=== PATIENT | male | born 1945 | race Caucasian/White ===

== ENCOUNTER 2020-06-06 05:28 | Inpatient (IN) ==
[2020-06-06] MEDS ORDERED: LORazepam 1 MG TAB SL STA (05:42)
[2020-06-06] MEDS ORDERED: SODIUM CHLORIDE 0.9% 500 ML IV ONE (05:43)
[2020-06-06] MEDS ORDERED: LORazepam 2 MG/ML VIAL (IM USE) ONE (05:46)
[2020-06-06] MEDS ORDERED: LORazepam 2 MG/ML VIAL (IM USE) IM STA (05:46)
--- NOTE | 2020-06-06 05:56 | Emergency Department Note ---
History of Present Illness General Chief complaint: Altered Mental Status Stated complaint: ALTERED MENTAL STATUS Time Seen by Provider: 06/06/20 05:33 Source: patient, family (daugther), EMS, RN notes reviewed and old records reviewed Mode of arrival: EMS Limitations: altered mental status History of Present Illness Provider complaint: AMS Onset (ago): hour(s) 1 Location: head Severity: similar to prior episodes Associated symptoms: + confusion Treatments prior to arrival: none This is a 74-year-old male who is currently at [facility]. The patient was recently at [facility] and had an MRI that was concerning for brain tumor. In addition the patient also had a shunt placed approximately 1 year ago by a [place] surgeon. The patient has a follow-up appointment with this doctor in 1 week. The patient approximately 2 hours ago this evening became suddenly confused. He will answer some questions however is non-cooperative. I placed a telephone call to this patient's daughter who reports that the patient has episodes of similar nature from time to time. Nobody has been able to figure out why the patient is having these episodes. He does have a follow-up for the shunt in 1 week. Home Medications Home Medications Medication Instructions Recorded Confirmed Type acetaminophen [Tylenol Extra 1,000 mg PO Q8H PRN 06/06/20 06/06/20 History Strength] aspirin [Aspirin Low Dose] 81 mg PO DAILY 06/06/20 06/06/20 History atorvastatin 40 mg PO DAILY 06/06/20 06/06/20 History bisacodyl 10 mg IL DAILY PRN 06/06/20 06/06/20 History clonidine HCl 0.1 mg PO BID 06/06/20 06/06/20 History docusate sodium 100 mg PO BID 06/06/20 06/06/20 History duloxetine 60 mg PO DAILY 06/06/20 06/06/20 History enoxaparin 40 mg SUBCUT DAILY 06/06/20 06/06/20 History finasteride 5 mg PO DAILY 06/06/20 06/06/20 History lidocaine [Lidoderm] 1 patch TOPICAL DAILY 06/06/20 06/06/20 History lisinopril 40 mg PO DAILY 06/06/20 06/06/20 History magnesium hydroxide 30 ml PO DAILY PRN 06/06/20 06/06/20 History metformin 1,000 mg PO BID 06/06/20 06/06/20 History metoprolol succinate [Toprol XL] 100 mg PO DAILY 06/06/20 06/06/20 History pantoprazole [Protonix] 40 mg PO DAILY 06/06/20 06/06/20 History polyethylene glycol 3350 [Miralax] 17 g PO DAILY PRN 06/06/20 06/06/20 History sennosides-docusate sodium 1 tab-cap PO DAILY PRN 06/06/20 06/06/20 History [Senokot-S] sitagliptin [Januvia] 100 mg PO DAILY 06/06/20 06/06/20 History sodium phosphates [Fleet Enema] 118 ml IL DAILY PRN 06/06/20 06/06/20 History Allergies Allergy/AdvReac Type Severity Reaction Status Date / Time No Known Allergies Allergy Unverified 06/06/20 05:59 Past Med/Surg History Medical History Brain lesion Cognitive impairment Diabetes mellitus GERD (gastroesophageal reflux disease) History of cerebellar stroke History of DVT (deep vein thrombosis) HTN (hypertension), benign Hyperlipidemia Lumbar spinal stenosis NPH (normal pressure hydrocephalus) Surgical History History of brain shunt Hx of decompressive lumbar laminectomy Family History Other Family history non-contributory Social History Smoking Status: Former smoker Tobacco Type: Cigarettes Age Quit Using Tobacco: 51; Hx Alcohol Use: No Hx Substance Use: No Preferred Language: [place] Director Of Financial Aid Required: No Beliefs That Will Affect Care: None Current Living Situation: Rehab Other Information That Helps Us Care for You: No Feels Safe at Home: Yes Safety Concerns: Feels Safe At This Time Review of Systems A total of 10 systems reviewed and were otherwise negative Physical Exam Vital Signs Vital Signs - 24 hr 06/06/20 05:49 06/06/20 06:43 06/06/20 07:30 Temperature 36.4 C L Temperature Source Oral Pulse Rate 65 70 Pulse Rate [Apical] 71 Pulse Rate from SpO2 Sensor 71 Respiratory Rate 19 18 12 Blood Pressure 137/73 184/90 H Blood Pressure [Right Arm] 169/100 H Blood Pressure Mean 94 130 Blood Pressure Mean [Right Arm] 123 Pulse Oximetry 95 94 95 Oxygen Delivery Method Room Air Room Air Room Air Sepsis Recent Fever Within 48 Hours No Sepsis New/Unexplained Change in Mental Status No Sepsis Action Taken by Nursing No Action Required 06/06/20 08:31 Temperature Temperature Source Pulse Rate 78 Pulse Rate [Apical] Pulse Rate from SpO2 Sensor 80 Respiratory Rate 18 Blood Pressure 168/98 H Blood Pressure [Right Arm] Blood Pressure Mean 124 Blood Pressure Mean [Right Arm] Pulse Oximetry 93 Oxygen Delivery Method Room Air Sepsis Recent Fever Within 48 Hours Sepsis New/Unexplained Change in Mental Status Sepsis Action Taken by Nursing VITAL SIGNS - Vital signs and nursing notes were reviewed. GENERAL - 74-year-old male appearing grossly confused but who is in no acute distress. Does not answer questions but is moving all 4 extremities SKIN - Without rashes. HEAD - NC/AT. EYES - PERRL with EOMI bilaterally. Sclera anicteric. Palpebral conjunctiva pink and moist with no injection noted. EARS - No deformities of external structures noted on gross examination bilaterally. No pain elicited with palpation of the tragus bilaterally. External auditory canals without discharge or otorrhea. Tympanic membranes pearly haywood without retraction or bulging. No fluid or purulent material visualized behind the TM. Handle of malleus, umbo, cone of light, pars tensa/flaccid all easily visualized. NOSE - Midline and without cyanosis. No epistaxis or purulent drainage noted. Septum midline without deviation or septal hematoma noted. MOUTH/OROPHARYNX - Without perioral cyanosis. Buccal mucosa pink and moist and without leukoplakia. Tongue midline with equal elevation of palate bilaterally. No tonsillar hypertrophy, erythema, or exudates noted. dentition noted. NECK - Neck with FROM. Supple to palpation. lymphadenopathy noted. No nuchal rigidity. LUNGS - Chest wall symmetric without accessory muscle use, intercostals retractions, or central cyanosis. Normal vesicular breath sounds CTA B/L. No wheezes, rales, or rhonchi appreciated. CARDIAC - RRR with S1/S2. No murmur, rubs, or gallops appreciated. ABDOMEN - Abdominal contour without pulsations or visible masses. BS normoactive all four quadrants. No tenderness, palpable masses, hepatosplenomegaly, or ascites noted. EXTREMITIES - No clubbing or peripheral cyanosis. No pretibial edema present. +3/5 radial, posterior tibial, and dorsalis pedis pulses palpated throughout. +5/5 strength noted in UE/LE bilaterally. NEUROLOGIC - Cranial nerves II through XII grossly intact. Sensory intact to light touch throughout. Patellar reflexes +2/4. PSYCH - A&Ox3 and cooperates fully with examiner. Pt is very pleasant and interacts well with examiner. Course Administered Medications Aspirin (Aspirin 81 Mg Ectab) 81 mg PO DAILY ISAAC Stop: 07/06/20 09:38 Last Admin: 06/06/20 16:37 Dose: Not Given Documented by: [id number] Atorvastatin Calcium (Atorvastatin 40 Mg Tab) 40 mg PO DAILY ISAAC Stop: 07/06/20 09:38 Last Admin: 06/06/20 16:37 Dose: Not Given Documented by: [id number] Clonidine HCl (Clonidine Hcl 0.1 Mg Tab) 0.1 mg PO BID ISAAC Stop: 07/06/20 09:38 Last Admin: 06/06/20 20:15 Dose: 0.1 mg Documented by: [id number] Admin: 06/06/20 16:37 Dose: Not Given Documented by: [id number] Docusate Sodium (Docusate Sodium 100 Mg Cap) 100 mg PO BID ISAAC Stop: 07/06/20 09:38 Last Admin: 06/06/20 20:34 Dose: Not Given Documented by: [id number] Admin: 06/06/20 16:36 Dose: Not Given Documented by: [id number] Duloxetine HCl (Duloxetine Hcl 60 Mg Cap) 60 mg PO DAILY ISAAC Stop: 07/06/20 09:38 Last Admin: 06/06/20 16:36 Dose: Not Given Documented by: [id number] Finasteride (Finasteride 5 Mg Tab) 5 mg PO DAILY ISAAC Stop: 07/06/20 09:38 Last Admin: 06/06/20 16:37 Dose: Not Given Documented by: [id number] Potassium Chloride/Sodium Chloride (Normal Saline W/20 Meq Kcl) 20 meq in 1,000 mls @ 75 mls/hr IV .[id number] ISAAC Stop: 07/06/20 08:44 Last Admin: 06/06/20 22:52 Dose: 75 mls/hr Documented by: [id number] Infusion: 06/06/20 22:52 Dose: 75 mls/hr Documented by: [id number] Admin: 06/06/20 10:19 Dose: 75 mls/hr Documented by: [id number] Lorazepam (Ativan) 1 mg in 2 mls @ 2 mls/min IV Q1H PRN PRN Reason: seizure or agitation Stop: 07/06/20 08:46 Last Admin: 06/06/20 14:00 Dose: 2 mls/min Documented by: [id number] Insulin Aspart (Insulin Aspart 100 Units/Ml 3 Ml Pen) 0 units SC ACHS COUNTS INCLUDE 234 BEDS AT THE [facility] Stop: 07/06/20 11:29 Last Admin: 06/06/20 21:13 Dose: Not Given Documented by: [id number] Cosigned by: [id number] Admin: 06/06/20 18:18 Dose: Not Given Documented by: [id number] Cosigned by: [id number] Admin: 06/06/20 12:00 Dose: Not Given Documented by: [id number] Cosigned by: [id number] Lisinopril (Lisinopril 40 Mg Tab) 40 mg PO DAILY COUNTS INCLUDE 234 BEDS AT THE [facility] Stop: 07/06/20 09:38 Last Admin: 06/06/20 16:37 Dose: Not Given Documented by: [id number] Metoprolol Succinate (Metoprolol Succ 50mg Ext Rel Tab) 100 mg PO DAILY COUNTS INCLUDE 234 BEDS AT THE [facility] Stop: 07/06/20 09:38 Last Admin: 06/06/20 16:37 Dose: Not Given Documented by: [id number] Sitagliptin Phosphate (Sitagliptin Phosphate 100 Mg Tab) 100 mg PO DAILY COUNTS INCLUDE 234 BEDS AT THE [facility] Stop: 07/06/20 09:38 Last Admin: 06/06/20 16:37 Dose: Not Given Documented by: [id number] Discontinued Medications Ciprofloxacin (Ciprofloxacin 500 Mg Tab) 500 mg PO NOW STA Stop: 06/06/20 07:08 Last Admin: 06/06/20 07:25 Dose: Not Given Documented by: [id number] Haloperidol Lactate (Haloperidol Lactate 5 Mg/Ml 1 Ml Vial) Confirm Administered Dose 5 mg .ROUTE .ST-MED ONE Stop: 06/06/20 06:38 Last Admin: 06/06/20 06:40 Dose: 5 mg Documented by: [id number] Haloperidol Lactate (Haloperidol Lactate 5 Mg/Ml 1 Ml Vial) 5 mg IM NOW STA Stop: 06/06/20 06:47 Last Admin: 06/06/20 06:47 Dose: Not Given Documented by: [id number] Sodium Chloride (Nss) 500 mls @ 999 mls/hr IV .Q31M ONE Stop: 06/06/20 06:13 Last Infusion: 06/06/20 07:00 Dose: 0 mls/hr Documented by: [id number] Admin: 06/06/20 06:29 Dose: 999 mls/hr Documented by: [id number] Ceftriaxone Sodium (Rocephin) 2,000 mg in 70 mls @ 140 mls/hr IV NOW STA Stop: 06/06/20 07:36 Last Infusion: 06/06/20 07:54 Dose: 0 mls/hr Documented by: [id number] Admin: 06/06/20 07:24 Dose: 140 mls/hr Documented by: [id number] Ciprofloxacin (Cipro / D5w) 400 mg in 200 mls @ 100 mls/hr IV NOW STA; Protocol Stop: 06/06/20 09:10 Last Infusion: 06/06/20 10:00 Dose: 0 mls/hr Documented by: [id number] Admin: 06/06/20 07:54 Dose: 100 mls/hr Documented by: [id number] Lorazepam (Lorazepam 1 Mg Tab) 1 mg SL NOW STA Stop: 06/06/20 05:43 Last Admin: 06/06/20 06:17 Dose: Not Given Documented by: [id number] Lorazepam (Lorazepam 2 Mg/Ml Vial (Im Use)) 1 mg IM NOW STA Stop: 06/06/20 05:47 Last Admin: 06/06/20 05:51 Dose: Not Given Documented by: [id number] Lorazepam (Lorazepam 2 Mg/Ml Vial (Im Use)) Confirm Administered Dose 2 mg .ROUTE .STK-MED ONE Stop: 06/06/20 05:47 Last Admin: 06/06/20 05:50 Dose: 1 mg Documented by: [id number] Metoprolol Tartrate (Metoprolol Tartrate 1 Mg/Ml Vial) 5 mg IV NOW STA Stop: 06/06/20 09:44 Last Admin: 06/06/20 10:21 Dose: 5 mg Documented by: [id number] Critical Care Time I have personally spent greater than 30 minutes of critical care time in the direct management of this patient. This includes bedside care, interpretation of diagnostic studies, and testing, discussion with consultants, patient, and family members, and other required patient management activities. This 30 minutes is in excess of all separately billable procedures. Medical Decision Making Differential Diagnosis Infection, dehydration, metabolic abnormality, hypo/hyperglycemia, electrolyte disturbance, anemia, hypoxia, cardiac sources, intracerebral event, toxicologic, neurologic, as well as other pathologies. Medical Records Attestation: I reviewed the patient's medical records. Home Medications Current Medication List: was personally reviewed by me Laboratory Data Attestation: I reviewed the patient's lab results. Result diagrams: 06/06/20 05:55 06/06/20 05:55 Lab Results 06/06/20 06/06/20 06/06/20 Range/Units 05:55 05:55 05:55 WBC 9.17 (4.8-10.8) K/uL RBC 3.94 L (4.7-6.1) M/uL Hgb 12.9 L (14.0-18.0) g/dL Hct 36.8 L (42-52) % MCV 93.4 (80-100) fL MCH 32.7 (25-34) pg MCHC 35.1 (32-36) g/dL RDW Std Deviation 43.3 (36.4-46.3) fL RDW Coeff of Preethi 12.6 (11.5-14.5) % Plt Count 221 (130-400) K/uL MPV 10.4 (7.4-10.4) fL Immature Gran % (Auto) 0.3 % Neut % (Auto) 54.6 % Lymph % (Auto) 36.0 % Mobile % (Auto) 6.4 % Eos % (Auto) 2.5 % Baso % (Auto) 0.2 % Neut # (Auto) 5.00 (1.4-6.5) K/uL Lymph # (Auto) 3.30 (1.2-3.4) K/uL Mobile # (Auto) 0.59 (0.11-0.59) K/uL Eos # (Auto) 0.23 (0-0.5) K/uL Baso # (Auto) 0.02 (0-0.2) K/uL Immature Gran # (Auto) 0.03 H (0.00-0.02) K/uL Sodium 140 (136-145) mmol/L Potassium 3.8 (3.5-5.1) mmol/L Chloride 106 (98-107) mmol/L Carbon Dioxide 25 (21-32) mmol/L Anion Gap 9.0 (3-11) BUN 26 H (7-18) mg/dl Creatinine 1.04 (0.6-1.4) mg/dl Est Cr Clr Drug Dosing 63.3 ml/min Est GFR ( Amer) 82.2 Est GFR (Non-Af Amer) 70.9 BUN/Creatinine Ratio 24.9 H (10-20) Glucose 111 H (70-99) mg/dl Calcium 8.7 (8.5-10.1) mg/dl Total Bilirubin 0.5 (0.2-1) mg/dl AST 21 (15-37) U/L ALT 44 (12-78) U/L Alkaline Phosphatase 70 (45-117) U/L Troponin I < 0.015 (0-0.045) ng/ml Total Protein 7.0 (6.4-8.2) gm/dl Albumin 3.6 (3.4-5.0) gm/dl Globulin 3.4 (2.5-4.0) gm/dl Albumin/Globulin Ratio 1.1 (0.9-2) TSH 1.310 (0.300-4.500) uIu/ml Urine Color Urine Appearance (Clear) Urine pH (4.5-7.5) Ur Specific [place] (1.000-1.030) Urine Protein (Negative) Urine Glucose (UA) (Negative) Urine Ketones (Negative) Urine Blood (Negative) Urine Nitrite (Negative) Urine Bilirubin (Negative) Urine Urobilinogen (Negative) Ur Leukocyte Esterase (Negative) Urine WBC (Auto) (0-5) /hpf Urine RBC (Auto) (0-4) /hpf U Hyaline Cast (Auto) (0-5) /lpf U Epithel Cells (Auto) (0-5) /lpf Urine Bacteria (Auto) (Negative) Hepatitis C Ab Screen Neg (Neg) 06/06/20 Range/Units 06:05 WBC (4.8-10.8) K/uL RBC (4.7-6.1) M/uL Hgb (14.0-18.0) g/dL Hct (42-52) % MCV (80-100) fL MCH (25-34) pg MCHC (32-36) g/dL RDW Std Deviation (36.4-46.3) fL RDW Coeff of Preethi (11.5-14.5) % Plt Count (130-400) K/uL MPV (7.4-10.4) fL Immature Gran % (Auto) % Neut % (Auto) % Lymph % (Auto) % Mobile % (Auto) % Eos % (Auto) % Baso % (Auto) % Neut # (Auto) (1.4-6.5) K/uL Lymph # (Auto) (1.2-3.4) K/uL Mobile # (Auto) (0.11-0.59) K/uL Eos # (Auto) (0-0.5) K/uL Baso # (Auto) (0-0.2) K/uL Immature Gran # (Auto) (0.00-0.02) K/uL Sodium (136-145) mmol/L Potassium (3.5-5.1) mmol/L Chloride (98-107) mmol/L Carbon Dioxide (21-32) mmol/L Anion Gap (3-11) BUN (7-18) mg/dl Creatinine (0.6-1.4) mg/dl Est Cr Clr Drug Dosing ml/min Est GFR ( Amer) Est GFR (Non-Af Amer) BUN/Creatinine Ratio (10-20) Glucose (70-99) mg/dl Calcium (8.5-10.1) mg/dl Total Bilirubin (0.2-1) mg/dl AST (15-37) U/L ALT (12-78) U/L Alkaline Phosphatase (45-117) U/L Troponin I (0-0.045) ng/ml Total Protein (6.4-8.2) gm/dl Albumin (3.4-5.0) gm/dl Globulin (2.5-4.0) gm/dl Albumin/Globulin Ratio (0.9-2) TSH (0.300-4.500) uIu/ml Urine Color Yellow Urine Appearance Clear (Clear) Urine pH 6.5 (4.5-7.5) Ur Specific [place] 1.023 (1.000-1.030) Urine Protein Negative (Negative) Urine Glucose (UA) Negative (Negative) Urine Ketones Trace H (Negative) Urine Blood Negative (Negative) Urine Nitrite Negative (Negative) Urine Bilirubin Negative (Negative) Urine Urobilinogen Negative (Negative) Ur Leukocyte Esterase 2+ H (Negative) Urine WBC (Auto) 10-30 H (0-5) /hpf Urine RBC (Auto) 0-4 (0-4) /hpf U Hyaline Cast (Auto) 1-5 (0-5) /lpf U Epithel Cells (Auto) 0-5 (0-5) /lpf Urine Bacteria (Auto) 2+ H (Negative) Hepatitis C Ab Screen (Neg) Imaging Data Radiologist's Impression: [place], [place] [phone] CT Scan Report Patient: DUSTIN CAROAdmit Date: 06/06/20 MR#: [id number]: [address] Acct ID:[id number]: Date: 1945[facility] Zip: [place] [address] Age: 74Location: ED Sex: MRoom/Bed: Att Phy:Diagnosis: ALTERED MENTAL STATUS [facility] Fam Phy:Interpreting Phy: Sunny Alicia MD Admit Phy: Ordering Phy: John Kelley MD cc: ~ CT head/brain wo con CLINICAL HISTORY: Acute change in mental status. COMPARISON STUDY: No previous studies for comparison. TECHNIQUE: Axial CT of the brain is performed from the vertex to the skull base. IV contrast was not administered for this examination. A dose lowering technique was utilized adhering to the principles of ALARA. CT DOSE: 2560.15 mGy.cm FINDINGS: No intra or extra-axial mass lesions are visualized. There is no CT evidence of acute cortical infarction. There is no evidence of midline shift. There is no acute hemorrhage. No calvarial fractures are visualized. There is a right posterior parieto-occipital ventriculostomy catheter. The tip terminates within the body left lateral ventricle. There are patchy white matter hypodensities likely on a small vessel basis. There is no evidence of pathologic ventricular dilatation. There is no evidence of acute sinusitis IMPRESSION: No acute intracranial findings ACT 112: Negative or not required by law. Electronically signed by: Sunny Alicia M.D. 06/06/2020 7:02 AM Dictated: 08/27/20 0700 Transcribed: 06/06/206[address] [place], [place] [phone] XRay Report Patient: DUSTIN CAROAdmit Date: 06/06/20 MR#: [id number]: [address] Acct ID:[id number]: Date: 1945[facility] Zip: [place] [address] Age: 74Location: ED Sex: MRoom/Bed: Att Phy:Diagnosis: ALTERED MENTAL STATUS [facility] Date: 06/06/20 Fam Phy:Interpreting Phy: Sunny Alicia MD Admit Phy: Ordering Phy: John Kelley MD cc: ~ XR chest 1V portable CLINICAL HISTORY: weakness COMPARISON STUDY: No previous studies for comparison. FINDINGS: The heart is enlarged. There is mild prominence of mediastinum likely vascular. There is no failure. There is no focal pulmonary consolidation. There are no pleural effusions. A shunt catheter projects over the right hemithorax.[ IMPRESSION: No active disease in the chest. ACT 112: Negative or not required by law. Electronically signed by: Sunny Alicia M.D. 06/06/2020 7:48 AM Dictated: 06/06/20746 Transcribed: 06/06/20746 ECG Data Attestation: I personally reviewed and interpreted this ECG as follows: Indication: + altered mental status Rate (beats per minute): 65 Rhythm: + normal sinus ECG Intervals/blocks: + Normal QT-c (438) ECG Rosine: + Normal ECG ST segments: no ST depression and no ST elevation Comparison ECG Date: no prior available MDM Narrative Patient was seen and evaluated as above in room C9. Review was performed of nursing notes and vital signs. I did review pertinent previous visits and patient history. After obtaining a thorough history and physical examination the above work up was performed. While in the department, I personally reevaluated the patient several times and each time the patient was found to be resting comfortably. The patient was educated upon management, educated upon todays findings/results, educated upon importance of follow up from today's visit, educated upon symptoms in which to return, had questions answered prior to discharge, verbalized understanding, and was discharged home in good condition. This is a 74-year-old male who presents the emergency department over concerns about an altered mental status. Upon arrival to the emergency department the patient is non-cooperative. Due to the patient's size we will have to sedate him to obtain laboratory work as well as a CAT scan of the head. I did discuss this with the patient's daughter. The patient's daughter states that the patient becomes confused from time to time and they have not ever quite figured out why. She does want him sedated so that everything can be checked out. For this reason the patient was given Ativan x2. The patient was still rambunctious and was still trying to leave his bed therefore he was given an additional dose of Haldol IM. He was placed on the monitor car operator. He was sent for CAT scan of the head which does not show any acute process. He does not have an elevation his white blood cell count however his urinalysis does suggest infection. He was started on IV Rocephin as well as IV Cipro. I did discuss t he case with the hospitalist service who did agree to admit the patient. An order was placed for continuous cardiac monitoring. The monitor shows a rate of 87 with Normal Sinus rhythm. The patient was evaluated during the global COVID-19 pandemic, and that diagnosis was suspected/considered upon their initial presentation. Their evaluation, treatment and testing was consistent with current guidelines for patients who present with complaints or symptoms that may be related to COVID- 19. Impression & Plan UTI (urinary tract infection), Confusion, Meningioma, S/P PERSONAL LINES ACCOUNT EXECUTIVE shunt Discharge Plan Visit Data Chief Complaint: Altered Mental Status Stated Complaint: ALTERED MENTAL STATUS ED Provider: John Kelley Discharge Problem: UTI (urinary tract infection), Confusion, Meningioma, S/P PERSONAL LINES ACCOUNT EXECUTIVE shunt Patient Disposition: Admitted As Inpatient Discharge Instructions Interventions: ED Discharge Assessment Last Done: 06/06/20 09:11 Discharge Problem: UTI (urinary tract infection) Qualifiers: Urinary tract infection type: site unspecified Hematuria presence: without hematuria Qualified Code(s): N39.0 - Urinary tract infection, site not specified
[2020-06-06 06:17] LABS: Basophils # (auto) 0.02 K/uL (0-0.2); Basophils % (auto) 0.2 %; Eosinophils # (auto) 0.23 K/uL (0-0.5); Eosinophils % (auto) 2.5 %; Hematocrit (blood only) 36.8 % (42-52); Hemoglobin 12.9 g/dL (14.0-18.0); Immature Granulocytes # (auto) 0.03 K/uL (0.00-0.02); Immature Granulocytes % (auto) 0.3 %; Mean Corpuscular Hemoglobin 32.7 pg (25-34); Mean Corpuscular Hgb Conc 35.1 g/dL (32-36); Mean Corpuscular Volume 93.4 fL (80-100); Mean Platelet Volume 10.4 fL (7.4-10.4); Monocytes # (auto) 0.59 K/uL (0.11-0.59); Monocytes % (auto) 6.4 %; Neutrophils % (auto) 54.6 %; Platelet Count 221 K/uL (130-400); RDW Coefficient of Variation 12.6 % (11.5-14.5); RDW Standard Deviation 43.3 fL (36.4-46.3); Red Blood Count 3.94 M/uL (4.7-6.1); White Blood Count 9.17 K/uL (4.8-10.8)
[2020-06-06 06:20] LABS: Appearance Urine Clear (Clear); Bacteria Urine Automated 2+ (Negative); Bilirubin Urine Negative (Negative); Blood Urine Negative (Negative); Color Urine Yellow; Epithelial Cell Urine Auto 0-5 /lpf (0-5); Glucose Urine UA Negative (Negative); Ketones Urine Trace (Negative); Leukocyte Esterase Urine 2+ (Negative); Nitrite Urine Negative (Negative); Protein Urine Negative (Negative); RBC Urine Automated 0-4 /hpf (0-4); Specific Gravity Urine 1.023 (1.000-1.030); Urobilinogen Urine Negative (Negative); pH Urine 6.5 (4.5-7.5)
[2020-06-06 06:37] LABS: Alanine Aminotransferase 44 U/L (12-78); Albumin Level 3.6 gm/dl (3.4-5.0); Aspartate Aminotransferase 21 U/L (15-37); BUN Creatinine Ratio 24.9 (10-20); Blood Urea Nitrogen 26 mg/dl (7-18); Calcium 8.7 mg/dl (8.5-10.1); Carbon Dioxide 25 mmol/L (21-32); Chloride 106 mmol/L (98-107); Creatinine Clr Calc Pharmacy 63.3 ml/min; Est GFR (African American) 82.2; Est GFR (Non-African American) 70.9; Glucose 111 mg/dl (70-99); Potassium 3.8 mmol/L (3.5-5.1); Sodium 140 mmol/L (136-145)
[2020-06-06] MEDS ORDERED: HALOPERIDOL LACTATE 5 MG/ML 1 ML VIAL ONE (06:37)
[2020-06-06] MEDS ORDERED: HALOPERIDOL LACTATE 5 MG/ML 1 ML VIAL IM STA (06:46)
[2020-06-06 06:48] LABS: Albumin Globulin Ratio 1.1 (0.9-2); Alkaline Phosphatase 70 U/L (45-117); Bilirubin,Total 0.5 mg/dl (0.2-1); Globulin 3.4 gm/dl (2.5-4.0); Troponin I < 0.015 ng/ml (0-0.045)
--- NOTE | 2020-06-06 07:03 | CT Scan Report ---
CT head/brain wo con CLINICAL HISTORY: Acute change in mental status. COMPARISON STUDY: No previous studies for comparison. TECHNIQUE: Axial CT of the brain is performed from the vertex to the skull base. IV contrast was not administered for this examination. A dose lowering technique was utilized adhering to the principles of ALARA. CT DOSE: 2560.15 mGy.cm FINDINGS: No intra or extra-axial mass lesions are visualized. There is no CT evidence of acute cortical infarc tion. There is no evidence of midline shift. There is no acute hemorrhage. No calvarial fractures ar e visualized. There is a right posterior parieto-occipital ventriculostomy catheter. The tip terminat es within the body left lateral ventricle. There are patchy white matter hypodensities likely on a small vessel basis. There is no evidence of pathologic ventricular dilatation. There is no evidence of acute sinusitis IMPRESSION: No acute intracranial findings ACT 112: Negative or not required by law. Electronically signed by: Sunny Alicia M.D. 06/06/2020 7:02 AM
[2020-06-06] MEDS ORDERED: CIPROFLOXACIN 500 MG TAB PO STA (07:07)
[2020-06-06] MEDS ORDERED: cefTRIAXone SODIUM 2,000 MG/70 ML BAG IV STA (07:07)
[2020-06-06] MEDS ORDERED: CIPROFLOXACIN / D5W 400 MG/200 ML BAG IV STA (07:11)
--- NOTE | 2020-06-06 07:49 | XRay Report ---
XR chest 1V portable CLINICAL HISTORY: weakness COMPARISON STUDY: No previous studies for comparison. FINDINGS: The heart is enlarged. There is mild prominence of mediastinum likely vascular. There is no failure. There is no focal pulmonary consolidation. There are no pleural effusions. A shunt catheter projects over the right hemithorax.[ IMPRESSION: No active disease in the chest. ACT 112: Negative or not required by law. Electronically signed by: Sunny Alicia M.D. 06/06/2020 7:48 AM
[2020-06-06] MEDS ORDERED: LORazepam 1 MG/2 ML VIAL IV PRN (08:47)
--- NOTE | 2020-06-06 08:48 | History & Physical Report ---
Date of Service June 06, 2020 Assessment & Plan (1) Confusion: With similar episodes 3-4 times over the last year as per my d/w daughter on phone, lasting a couple hours and cannot walk or even sit up when these occur Was combative and confused upon arrival With mentioned brain lesion on recent brain MRI at OSH--> admit and do further Neuro eval CABIN AGENT shunt in place on CT head Afebrile With UTI which may be contributing COuld be TIA vs seizure -admit to PCU -check brain MRI -consult Neuro STAT EEG to look for seizure activity -ativan prn seizure activity or agitation -monitor for arrhythmias labs otherwise ok for now, no metabolic disturbances -NPO until more awake, replace po meds for BP with IV -start IVFs while NPO (2) Brain lesion: as above check brain MRI here (3) UTI (urinary tract infection): UA abnormal Ur cx pending -continue IV Rocephin (4) History of cerebellar stroke: as per reports from OSH with left cerebellar CVA and falls on 05/26 No outside images for review -continue ASA, statin will eventually need PT/OT once wakes up Neuro consult (5) Diabetes mellitus: uncontrolled as per records from rehab with A1C 9.2% recently -accuchekcs, SSI hold Lantus for now -cont Januvia if/when wakes up hold home metformin (6) NPH (normal pressure hydrocephalus): s/p CABIN AGENT shunt in [address] Stiles [facility] in [place] (7) Cognitive impairment: mild as per daughter (8) GERD (gastroesophageal reflux disease): continue PPI once taking po (9) HTN (hypertension), benign: BPs elevated, did nto take meds today give IV Vasotec prn SBP>180 and IV lopressor x 1 dose now -restart home meds when wakes up of clonidine, metoprolol, lisinopril (10) Lumbar spinal stenosis: noted, h/o decomp and fusion (11) History of DVT (deep vein thrombosis): written in chart but daughter not aware of this diagnosis -start Lovenox SQ if no tumor on brain MRI (12) Hyperlipidemia: cont statin (13) DVT prophylaxis: add Lovenox SQ if no bleeding or brain tumor with doni aon MRI SCDs Dispo-admit to PCU Daughter thinks her dad told her he wanted to be a DNR however [facility] chart says FULL CODE--> will keep FULL CODE for now but reassess with pt once he is more awake and alert History of Present Illness Chief Complaint: Confusion, fall Primary Care Provider: [facility] Pt is a 74 yo male with a recent history of left cerebellar infarct, possible brain met/neoplasm, HTN, NPH s/p shunt placement in 2019, DMII, GERD, cognitive impairment, h/o DVT, lumbar spinal stenosis, as well as mention in notes about possible pituitary adenoma, who presents to the [place] ER from [facility] with confusion, combativeness, and fall. The pt was obtunded after receiving IV Ativan and Haldol when I saw him in ER and moaned but could not provide any history. History obtained from paperwork from [facility] and ER physician who also spoke with pt's daughter. he was at [facility] rehab after a hospitalization at [facility] on 05/26 for cerebellar stroke. He was found at that time to have a "tiny brain lesion metastatic vs neoplasm" on brain MRI also. He apparently became acutely confused at [facility] prompting being sent to the ER. Daughter reports a h/o similar episodes in the past that have not had a cause identified and he has not had a workup for strokes. In the ER, he was combative and received Haldol and Ativan. Was found to have a UTI and given Cipro and Rocephin. Vitals were stable and labs otherwise unremarkable. CT head showed right posterior parieto-occipital ventriculostomy catheter with tip terminating in body of left ventricle, but no acute findings. CXR negative He will be admitted for acute confusion, UTI, needs further Neurological evaluation. Allergies Allergy/AdvReac Type Severity Reaction Status Date / Time No Known Allergies Allergy Unverified 06/06/20 05:59 Home Medications Home Medications Medication Instructions Recorded Confirmed Type acetaminophen [Tylenol Extra 1,000 mg PO Q8H PRN 06/06/20 06/06/20 History Strength] aspirin [Aspirin Low Dose] 81 mg PO DAILY 06/06/20 06/06/20 History atorvastatin 40 mg PO DAILY 06/06/20 06/06/20 History bisacodyl [address] DAILY PRN 06/06/20 06/06/20 History clonidine HCl 0.1 mg PO BID 06/06/20 06/06/20 History docusate sodium 100 mg PO BID 06/06/20 06/06/20 History duloxetine 60 mg PO DAILY 06/06/20 06/06/20 History enoxaparin 40 mg SUBCUT DAILY 06/06/20 06/06/20 History finasteride 5 mg PO DAILY 06/06/20 06/06/20 History lidocaine [Lidoderm] 1 patch TOPICAL DAILY 06/06/20 06/06/20 History lisinopril 40 mg PO DAILY 06/06/20 06/06/20 History magnesium hydroxide 30 ml PO DAILY PRN 06/06/20 06/06/20 History metformin 1,000 mg PO BID 06/06/20 06/06/20 History metoprolol succinate [Toprol XL] 100 mg PO DAILY 06/06/20 06/06/20 History pantoprazole [Protonix] 40 mg PO DAILY 06/06/20 06/06/20 History polyethylene glycol 3350 [Miralax] 17 g PO DAILY PRN 06/06/20 06/06/20 History sennosides-docusate sodium 1 tab-cap PO DAILY PRN 06/06/20 06/06/20 History [Senokot-S] sitagliptin [Januvia] 100 mg PO DAILY 06/06/20 06/06/20 History sodium phosphates [Fleet Enema] [address] DAILY PRN 06/06/20 06/06/20 History Past Med/Surg History Medical History Brain lesion Cognitive impairment Diabetes mellitus GERD (gastroesophageal reflux disease) History of cerebellar stroke History of DVT (deep vein thrombosis) HTN (hypertension), benign Hyperlipidemia Lumbar spinal stenosis NPH (normal pressure hydrocephalus) Surgical History History of brain shunt Hx of decompressive lumbar laminectomy Family History (Updated 06/06/20 @ 13:10 by Corrie Guzman MD) Other Family history non-contributory Social History (Updated 06/06/20 @ 13:10 by Corrie Guzman MD) Smoking Status: Former smoker Tobacco Type: Cigarettes Age Quit Using Tobacco: 51; Hx Alcohol Use: No Hx Substance Use: No Preferred Language: [place] [employer] Required: No Beliefs That Will Affect Care: None Current Living Situation: Rehab Other Information That Helps Us Care for You: No Feels Safe at Home: Yes Safety Concerns: Feels Safe At This Time Review of Systems Review of Systems: Unobtainable due to reduced consciousness Physical Exam Constitutional: WD/WN, vitals as above Eyes: PERRL, conjunctivae normal, anicteric sclerae ENMT: external ear and nose normal, oropharynx normal Neck: trachea midline, no thyromegaly Respiratory: normal respiratory effort, lungs clear to auscultation Cardiovascular: RRR, no murmur, no edema Chest (Breasts): Chest: normal inspection of chest Gastrointestinal (Abdomen): normal bowel sounds, soft, nontender, no hepatosplenomegaly Musculoskeletal: Extremities: extremities normal to inspection; no cyanosis and no clubbing Skin: no rashes, warm and dry Neurologic: moves all extremities and + obtunded moans and moves arms and legs a bit with loud verbal and tactile stimuli Genitourinary: no testicular masses, no penis abnormality Lymphatic: no lymphedema Results & Data Results & Data ([facility]) Vital Signs (Past 12 Hours) Vital Signs Temp Pulse Pulse Resp BP BP Pulse Ox 06/06/20 08:31 78 18 168/98 H 93 06/06/20 07:30 70 12 184/90 H 95 06/06/20 06:43 71 18 169/100 H 94 06/06/20 05:49 36.4 C L 65 19 137/73 95 Laboratory Results 06/06/20 06/06/20 06/06/20 Range/Units 11:55 06:05 05:55 WBC (4.8-10.8) K/uL RBC (4.7-6.1) M/uL Hgb (14.0-18.0) g/dL Hct (42-52) % MCV (80-100) fL MCH (25-34) pg MCHC (32-36) g/dL RDW Std Deviation (36.4-46.3) fL RDW Coeff of Preethi (11.5-14.5) % Plt Count (130-400) K/uL MPV (7.4-10.4) fL Immature Gran % (Auto) % Neut % (Auto) % Lymph % (Auto) % [place] % (Auto) % Eos % (Auto) % Baso % (Auto) % Neut # (Auto) (1.4-6.5) K/uL Lymph # (Auto) (1.2-3.4) K/uL [place] # (Auto) (0.11-0.59) K/uL Eos # (Auto) (0-0.5) K/uL Baso # (Auto) (0-0.2) K/uL Immature Gran # (Auto) (0.00-0.02) K/uL Sodium (136-145) mmol/L Potassium (3.5-5.1) mmol/L Chloride (98-107) mmol/L Carbon Dioxide (21-32) mmol/L Anion Gap (3-11) BUN (7-18) mg/dl Creatinine (0.6-1.4) mg/dl Est Cr Clr Drug Dosing ml/min Est GFR ( Amer) Est GFR (Non-Af Amer) BUN/Creatinine Ratio (10-20) Glucose (70-99) mg/dl POC Glucose 120 H (70-99) mg/dl Calcium (8.5-10.1) mg/dl Total Bilirubin (0.2-1) mg/dl AST (15-37) U/L ALT (12-78) U/L Alkaline Phosphatase (45-117) U/L Troponin I (0-0.045) ng/ml Total Protein (6.4-8.2) gm/dl Albumin (3.4-5.0) gm/dl Globulin (2.5-4.0) gm/dl Albumin/Globulin Ratio (0.9-2) TSH (0.300-4.500) uIu/ml Urine Color Yellow Urine Appearance Clear (Clear) Urine pH 6.5 (4.5-7.5) Ur Specific [place] 1.023 (1.000-1.030) Urine Protein Negative (Negative) Urine Glucose (UA) Negative (Negative) Urine Ketones Trace H (Negative) Urine Blood Negative (Negative) Urine Nitrite Negative (Negative) Urine Bilirubin Negative (Negative) Urine Urobilinogen Negative (Negative) Ur Leukocyte Esterase 2+ H (Negative) Urine WBC (Auto) 10-30 H (0-5) /hpf Urine RBC (Auto) 0-4 (0-4) /hpf U Hyaline Cast (Auto) 1-5 (0-5) /lpf U Epithel Cells (Auto) 0-5 (0-5) /lpf Urine Bacteria (Auto) 2+ H (Negative) Hepatitis C Ab Screen Neg (Neg) 06/06/20 06/06/20 Range/Units 05:55 05:55 WBC 9.17 (4.8-10.8) K/uL RBC 3.94 L (4.7-6.1) M/uL Hgb 12.9 L (14.0-18.0) g/dL Hct 36.8 L (42-52) % MCV 93.4 (80-100) fL MCH 32.7 (25-34) pg MCHC 35.1 (32-36) g/dL RDW Std Deviation 43.3 (36.4-46.3) fL RDW Coeff of Preethi 12.6 (11.5-14.5) % Plt Count 221 (130-400) K/uL MPV 10.4 (7.4-10.4) fL Immature Gran % (Auto) 0.3 % Neut % (Auto) 54.6 % Lymph % (Auto) 36.0 % [place] % (Auto) 6.4 % Eos % (Auto) 2.5 % Baso % (Auto) 0.2 % Neut # (Auto) 5.00 (1.4-6.5) K/uL Lymph # (Auto) 3.30 (1.2-3.4) K/uL [place] # (Auto) 0.59 (0.11-0.59) K/uL Eos # (Auto) 0.23 (0-0.5) K/uL Baso # (Auto) 0.02 (0-0.2) K/uL Immature Gran # (Auto) 0.03 H (0.00-0.02) K/uL Sodium 140 (136-145) mmol/L Potassium 3.8 (3.5-5.1) mmol/L Chloride 106 (98-107) mmol/L Carbon Dioxide 25 (21-32) mmol/L Anion Gap 9.0 (3-11) BUN 26 H (7-18) mg/dl Creatinine 1.04 (0.6-1.4) mg/dl Est Cr Clr Drug Dosing 63.3 ml/min Est GFR ( Amer) 82.2 Est GFR (Non-Af Amer) 70.9 BUN/Creatinine Ratio 24.9 H (10-20) Glucose 111 H (70-99) mg/dl POC Glucose (70-99) mg/dl Calcium 8.7 (8.5-10.1) mg/dl Total Bilirubin 0.5 (0.2-1) mg/dl AST 21 (15-37) U/L ALT 44 (12-78) U/L Alkaline Phosphatase 70 (45-117) U/L Troponin I < 0.015 (0-0.045) ng/ml Total Protein 7.0 (6.4-8.2) gm/dl Albumin 3.6 (3.4-5.0) gm/dl Globulin 3.4 (2.5-4.0) gm/dl Albumin/Globulin Ratio 1.1 (0.9-2) TSH 1.310 (0.300-4.500) uIu/ml Urine Color Urine Appearance (Clear) Urine pH (4.5-7.5) Ur Specific [place] (1.000-1.030) Urine Protein (Negative) Urine Glucose (UA) (Negative) Urine Ketones (Negative) Urine Blood (Negative) Urine Nitrite (Negative) Urine Bilirubin (Negative) Urine Urobilinogen (Negative) Ur Leukocyte Esterase (Negative) Urine WBC (Auto) (0-5) /hpf Urine RBC (Auto) (0-4) /hpf U Hyaline Cast (Auto) (0-5) /lpf U Epithel Cells (Auto) (0-5) /lpf Urine Bacteria (Auto) (Negative) Hepatitis C Ab Screen (Neg) Diagnostic Findings CT Head: CT head/brain wo con CLINICAL HISTORY: Acute change in mental status. COMPARISON STUDY: No previous studies for comparison. TECHNIQUE: Axial CT of the brain is performed from the vertex to the skull base. IV contrast was not administered for this examination. A dose lowering technique was utilized adhering to the principles of ALARA. CT DOSE: 2560.15 mGy.cm FINDINGS: No intra or extra-axial mass lesions are visualized. There is no CT evidence of acute cortical infarction. There is no evidence of midline shift. There is no acute hemorrhage. No calvarial fractures are visualized. There is a right posterior parieto-occipital ventriculostomy catheter. The tip terminates within the body left lateral ventricle. There are patchy white matter hypodensities likely on a small vessel basis. There is no evidence of pathologic ventricular dilatation. There is no evidence of acute sinusitis IMPRESSION: No acute intracranial findings XR chest 1V portable CLINICAL HISTORY: weakness COMPARISON STUDY: No previous studies for comparison. FINDINGS: The heart is enlarged. There is mild prominence of mediastinum likely vascular. There is no failure. There is no focal pulmonary consolidation. There are no pleural effusions. A shunt catheter projects over the right hemithorax.[ IMPRESSION: No active disease in the chest. ECG Additional Comments: NSR, rate 65, LVH with repol abnormality Code Status & VTE Plan Code Status Full Code VTE Prophylaxis Plan VTE Prophylaxis will be ordered: Yes PG Care Time/CCT Total # of Minutes Spent Total Time Spent with Patient: Total time spent is greater than 50% in coordination of care (as documented) at patient's floor/unit and/or counseling patient: Coding Level of Care Code 73592 Initial Inpt Care Lvl 3 Diagnoses Confusion R41.0 Brain lesion G93.9 UTI (urinary tract infection) N39.0 History of cerebellar stroke Z86.73 Diabetes mellitus E11.9 NPH (normal pressure hydrocephalus) G91.2 Cognitive impairment R41.89 GERD (gastroesophageal reflux disease) K21.9 HTN (hypertension), benign I10 Lumbar spinal stenosis M48.061 History of DVT (deep vein thrombosis) Z86.718 Hyperlipidemia E78.5 DVT prophylaxis Z29.9
--- NOTE | 2020-06-06 08:56 | Electrocardiogram Report ---
Test Reason : Blood Pressure : / mmHG Vent. Rate : 065 BPM Atrial Rate : 065 BPM P-R Int : 152 ms QRS Dur : 092 ms QT Int : 422 ms P-R-T Axes : 041 -03 079 degrees QTc Int : 438 ms Normal sinus rhythm Left ventricular hypertrophy with repolarization abnormality Abnormal ECG No previous ECGs available Confirmed by Lonnie Juarez ([id number]) on 06/06/2020 8:56:00 AM Referred By: ED Confirmed By:Lonnie Juarez
[2020-06-06] MEDS ORDERED: ONDANSETRON INJ 2 MG/ML 2 ML VIAL IV PRN (09:39)
[2020-06-06] MEDS ORDERED: GLUCOSE 10 TABS/TUBE PO PRN (09:39)
[2020-06-06] MEDS ORDERED: DEXTROSE 50% 50 ML SYRINGE IV PRN (09:39)
[2020-06-06] MEDS ORDERED: GLUCOSE 40% GEL 15 GM TUBE PO PRN (09:39)
[2020-06-06] MEDS ORDERED: GLUCAGON FOR INJ 1 MG VIAL SQ PRN (09:39)
[2020-06-06] MEDS ORDERED: CARBOHYDRATES FOR HYPOGLYCEMIA PO PRN (09:39)
[2020-06-06] MEDS ORDERED: POLYETHYLENE (MIRALAX) 17 GM PACK PO PRN (09:39)
[2020-06-06] MEDS ORDERED: METOPROLOL TARTRATE 1 MG/ML VIAL IV STA (09:43)
[2020-06-06] MEDS: NSS + 20MEQ KCL 20 MEQ/1,000 ML BAG IV SCH ×2 (10:19→22:52)
[2020-06-06] MEDS: INSULIN ASPART 100 UNITS/ML 3 ML PEN SC SCH ×3 (12:00→21:13)
[2020-06-06] MEDS ORDERED: ENALAPRILAT 0.625 MG in SYRINGE 9.5 ML IV PRN (12:53)
--- NOTE | 2020-06-06 13:30 | Electroencephalogram ---
EEG Procedure Note Date of Service June 06, 2020 Start / End Times Start Time: 10:57 End Time: 11:[address] Corrie Guzman History A 74-year-old male with encephalopathy. EEG performed for evaluation of epileptiform activity. Home Medication List Home Medications Medication Instructions Recorded Confirmed Type acetaminophen [Tylenol Extra 1,000 mg PO Q8H PRN 06/06/20 06/06/20 History Strength] aspirin [Aspirin Low Dose] 81 mg PO DAILY 06/06/20 06/06/20 History atorvastatin 40 mg PO DAILY 06/06/20 06/06/20 History bisacodyl 10 mg ME DAILY PRN 06/06/20 06/06/20 History clonidine HCl 0.1 mg PO BID 06/06/20 06/06/20 History docusate sodium 100 mg PO BID 06/06/20 06/06/20 History duloxetine 60 mg PO DAILY 06/06/20 06/06/20 History enoxaparin 40 mg SUBCUT DAILY 06/06/20 06/06/20 History finasteride 5 mg PO DAILY 06/06/20 06/06/20 History lidocaine [Lidoderm] 1 patch TOPICAL DAILY 06/06/20 06/06/20 History lisinopril 40 mg PO DAILY 06/06/20 06/06/20 History magnesium hydroxide 30 ml PO DAILY PRN 06/06/20 06/06/20 History metformin 1,000 mg PO BID 06/06/20 06/06/20 History metoprolol succinate [Toprol XL] 100 mg PO DAILY 06/06/20 06/06/20 History pantoprazole [Protonix] 40 mg PO DAILY 06/06/20 06/06/20 History polyethylene glycol 3350 [Miralax] 17 g PO DAILY PRN 06/06/20 06/06/20 History sennosides-docusate sodium 1 tab-cap PO DAILY PRN 06/06/20 06/06/20 History [Senokot-S] sitagliptin [Januvia] 100 mg PO DAILY 06/06/20 06/06/20 History sodium phosphates [Fleet Enema] 118 ml ME DAILY PRN 06/06/20 06/06/20 History Inpatient Medication List Potassium Chloride/Sodium Chloride (Normal Saline W/20 Meq Kcl) 20 meq in 1,000 mls @ 75 mls/hr IV .[id number] ISAAC Stop: 07/06/20 08:44 Last Admin: 06/06/20 10:19 Dose: 75 mls/hr Documented by: [id number] Discontinued Medications Ciprofloxacin (Ciprofloxacin 500 Mg Tab) 500 mg PO NOW STA Stop: 06/06/20 07:08 Last Admin: 06/06/20 07:25 Dose: Not Given Documented by: [id number] Haloperidol Lactate (Haloperidol Lactate 5 Mg/Ml 1 Ml Vial) Confirm Administered Dose 5 mg .ROUTE .STK-MED ONE Stop: 06/06/20 06:38 Last Admin: 06/06/20 06:40 Dose: 5 mg Documented by: [id number] Haloperidol Lactate (Haloperidol Lactate 5 Mg/Ml 1 Ml Vial) 5 mg IM NOW STA Stop: 06/06/20 06:47 Last Admin: 06/06/20 06:47 Dose: Not Given Documented by: [id number] Sodium Chloride (Nss) 500 mls @ 999 mls/hr IV .Q31M ONE Stop: 06/06/20 06:13 Last Infusion: 06/06/20 07:00 Dose: 0 mls/hr Documented by: [id number] Admin: 06/06/20 06:29 Dose: 999 mls/hr Documented by: [id number] Ceftriaxone Sodium (Rocephin) 2,000 mg in 70 mls @ 140 mls/hr IV NOW STA Stop: 06/06/20 07:36 Last Infusion: 06/06/20 07:54 Dose: 0 mls/hr Documented by: [id number] Admin: 06/06/20 07:24 Dose: 140 mls/hr Documented by: [id number] Ciprofloxacin (Cipro / D5w) 400 mg in 200 mls @ 100 mls/hr IV NOW STA; Protocol Stop: 06/06/20 09:10 Last Admin: 06/06/20 07:54 Dose: 100 mls/hr Documented by: [id number] Lorazepam (Lorazepam 1 Mg Tab) 1 mg SL NOW STA Stop: 06/06/20 05:43 Last Admin: 06/06/20 06:17 Dose: Not Given Documented by: [id number] Lorazepam (Lorazepam 2 Mg/Ml Vial (Im Use)) 1 mg IM NOW STA Stop: 06/06/20 05:47 Last Admin: 06/06/20 05:51 Dose: Not Given Documented by: [id number] Lorazepam (Lorazepam 2 Mg/Ml Vial (Im Use)) Confirm Administered Dose 2 mg .ROUTE .[employer] ONE Stop: 06/06/20 05:47 Last Admin: 06/06/20 05:50 Dose: 1 mg Documented by: [id number] Metoprolol Tartrate (Metoprolol Tartrate 1 Mg/Ml Vial) 5 mg IV NOW STA Stop: 06/06/20 09:44 Last Admin: 06/06/20 10:21 Dose: 5 mg Documented by: [id number] Description This is a 21 electrode EEG with a single channel dedicated to limited EKG. The electrodes were placed in accordance with the International 10-20 system. Report: At the onset of the EEG the patient is in an altered mental state. The background is symmetric although disorganized. The posterior dominant rhythm is not seen instead the background predominantly consist of diffuse 2-3 hertz polymorphic delta activity with superimposed faster activity which is likely artifactual. There is some intermittent movement artifact. Photic stimulation does not induce any abnormalities. No stage 2 sleep transients are recorded. Impression: This is an abnormal routine EEG in a patient with altered mentation due to moderate to severe generalized background slowing suggestive of a nonspecific encephalopathy. There is no evidence of focal slowing or epileptiform activity.
--- NOTE | 2020-06-06 14:33 | Magnetic Resonance Report ---
Brain MRI WITHOUT CONTRAST HISTORY: Confusion. Altered mental status. brain lesion,suspect seizures TECHNIQUE: Multiplanar multisequence MRI of the brain was performed without the use of contrast. The patient was unable to tolerate the entire examination. The coronal FLAIR sequences were not able to b e obtained. COMPARISON STUDY: Head CT 06/06/2020. FINDINGS: Suboptimal study due to the extensive motion artifact. There is no definite hematoma, midli ne shift, or acute infarct. A 1.4 cm left parafalcine T2 hyperintense extra-axial lesion within the h igh convexity on image 19. This demonstrates restricted diffusion and likely represents a meningioma. No intracranial lesions identified. The ventricles and sulci demonstrate mild age-related involution al changes. There is a right parietal approach ventriculostomy catheter which terminates at the midli ne of the lateral ventricles. The paranasal sinuses and mastoid air cells are clear. The major vascul ar flow voids at the skull base are well-maintained. The midline structures appear grossly intact. Sc attered T2 hyperintensity seen within the periventricular and subcortical white matter favors microva scular ischemic change. IMPRESSION: 1. Suboptimal study due to the significant motion artifact. No definite acute intracranial abnormalit y. 2. A 1.4 cm extra-axial left parafalcine lesion within the left high convexity. This likely represent s a meningioma. 3. Atrophy and microvascular ischemic changes are noted. 4. A right frontal approach ventriculostomy catheter terminates at the midline of the lateral ventric les. ACT 112: Negative or not required by law. Electronically signed by: Rodrick Cantrell M.D. 06/06/2020 2:31 PM
--- NOTE | 2020-06-06 16:02 | Neurology Consultation ---
Date of Consultation June 06, 2020 Assessment & Plan (1) Confusion: Polo Farooq is a 74 yo man w/ PMH of HTN, HLD, DM, h/o NPH s/p VPS in 2019, cognitive impairment, h/o DVT on ASA, known suspected brain tumor on MRI performed for recent stroke, and recent left cerebellar infarct currently in rehab [facility] p/t [facility] after acute onset of confusion, agitation and fall. # Acute onset confusion/agitation episode: cannot rule out seizure though he does not currently have any seizure tendency or seizures noted on EEG. Does have underlying MCI and current UTI which could certainly be contributing to his picture. Unfortunately, he was given significant ativan and haldol prior to evaluation and now he is quite somnolent. Given his h/o MCI vs dementia, behavioral issues can be an issue for some of these patients. - recommend repeating MRI brain with contrast when he is more alert and able to follow commands to hold still to help further look at lesion in brain (most likely a meningioma given location and appearance) - treat UTI as already doing - would check B12, thiamine, folate to r/o other treatable cause of memory issues - no need to start an AED at this time - seizure precautions, ativan 1mg prn for seizure lasting longer than 5 minutes or more than 2 seizures without return to baseline - if he spikes a fever, would send off for blood culture # Recent punctuate cerebellar stroke: - continue home aspirin 81mg daily and atorvastatin 40mg daily - SSI for DM while admitted since we plan on re-trying MRI brain with contrast (hold metformin) - continue home BP meds, goal should be normotension Thank you for this interesting consult. Plan of care discussed with primary team. Please call or text questions. (2) UTI (urinary tract infection): (3) History of cerebellar stroke: (4) Cognitive impairment: (5) NPH (normal pressure hydrocephalus): (6) Meningioma: (7) S/P [employer] shunt: History of Present Illness Attending Physician: Corrie Guzman MD History of Present Illness Polo Farooq is a 74 yo man w/ PMH of HTN, HLD, DM, h/o NPH s/p VPS in 2019, cognitive impairment, h/o DVT on ASA, known suspected brain tumor on MRI performed for recent stroke, and recent left cerebellar infarct currently in rehab [facility] p/t [facility] after acute onset of confusion, agitation and fall. In the ED, BP initially 137/73 and has been variable since admission with peak up to 193/103 and low 98/41. Patient has been afebrile with heart rate in the 60s and 70s, satting 93 to 95% on room air. Labs notable for WBC 9.17, hemoglobin 12.9, platelets 221, sodium 140, potassium 3.8, BUN mildly elevated 26, creatinine 1.04, glucose 111, calcium within normal, LFTs within normal, troponin negative, TSH 1.31, UA positive for infection. Imaging independently reviewed. CT head shows no hemorrhage, small hypodensity in the left cerebellum, [employer] shunt from the right parietal lobe approach terminating in the left anterior lateral ventricle. MRI brain could not be fully completed due to patient motion but was notable for a small left parafalcine T2 hyperintensity with mild associated DWI restriction (location suggest small meningioma), no clear acute infarct, punctate chronic left cerebellar infarct, and [employer] shunt as noted in the CT head. Chest x-ray showed cardiomegaly, shunt catheter tip present in the right hemithorax and no signs of pneumonia Stat EEG performed and showed moderate to severe generalized slowing consistent with nonspecific encephalopathy. He has been started on ceftriaxone for UTI. On examination this afternoon, he minimally opened his eyes to noxious stimuli and would grimace. He otherwise did not follow commands or add any other meaningful history. On review of other notes, he has had similar episodes in the last year where he becomes acutely confused and agitated that last a few hours and resolve. Unclear under what circumstances these other episodes have occurred under (infection, medication change, etc?). He does supposedly have follow up with his neurosurgeon in [place] next week regarding the shunt. Allergies Allergy/AdvReac Type Severity Reaction Status Date / Time No Known Allergies Allergy Unverified 06/06/20 05:59 Home Medications Home Medications Medication Instructions Recorded Confirmed Type acetaminophen [Tylenol Extra 1,000 mg PO Q8H PRN 06/06/20 06/06/20 History Strength] aspirin [Aspirin Low Dose] 81 mg PO DAILY 06/06/20 06/06/20 History atorvastatin 40 mg PO DAILY 06/06/20 06/06/20 History bisacodyl 10 mg IN DAILY PRN 06/06/20 06/06/20 History clonidine HCl 0.1 mg PO BID 06/06/20 06/06/20 History docusate sodium 100 mg PO BID 06/06/20 06/06/20 History duloxetine 60 mg PO DAILY 06/06/20 06/06/20 History enoxaparin 40 mg SUBCUT DAILY 06/06/20 06/06/20 History finasteride 5 mg PO DAILY 06/06/20 06/06/20 History lidocaine [Lidoderm] 1 patch TOPICAL DAILY 06/06/20 06/06/20 History lisinopril 40 mg PO DAILY 06/06/20 06/06/20 History magnesium hydroxide 30 ml PO DAILY PRN 06/06/20 06/06/20 History metformin 1,000 mg PO BID 06/06/20 06/06/20 History metoprolol succinate [Toprol XL] 100 mg PO DAILY 06/06/20 06/06/20 History pantoprazole [Protonix] 40 mg PO DAILY 06/06/20 06/06/20 History polyethylene glycol 3350 [Miralax] 17 g PO DAILY PRN 06/06/20 06/06/20 History sennosides-docusate sodium 1 tab-cap PO DAILY PRN 06/06/20 06/06/20 History [Senokot-S] sitagliptin [Januvia] 100 mg PO DAILY 06/06/20 06/06/20 History sodium phosphates [Fleet Enema] 118 ml IN DAILY PRN 06/06/20 06/06/20 History Patient History Medical History Brain lesion Cognitive impairment Diabetes mellitus GERD (gastroesophageal reflux disease) History of cerebellar stroke History of DVT (deep vein thrombosis) HTN (hypertension), benign Hyperlipidemia Lumbar spinal stenosis NPH (normal pressure hydrocephalus) Surgical History History of brain shunt Hx of decompressive lumbar laminectomy Family History Other Family history non-contributory Social History Smoking Status: Former smoker Tobacco Type: Cigarettes Age Quit Using Tobacco: 51; Hx Alcohol Use: No Hx Substance Use: No Preferred Language: [place]se [employer] Required: No Beliefs That Will Affect Care: None Current Living Situation: Rehab Other Information That Helps Us Care for You: No Feels Safe at Home: Yes Safety Concerns: Feels Safe At This Time Review of Systems Review of Systems: Unobtainable due to cognitive status and Unobtainable due to reduced consciousness Exam (Neuro) Physical Exam: General Exam: GEN: NAD, sitting in bed. HEENT: No conjunctival injection, no rhinorrhea. CV: RRR, no peripheral edema PULM: Nonlabored respirations on room air. Neuro Exam: MS: Drowsy, minimally arousable to noxious stimuli. Unable to answer orientation questions or follow commands. Cannot assess mental status questions further. CN: PERRLA OU. Normal eye movements on dolls eye maneuver. Facial muscles full and symmetric. Hearing intact to conversation. MOTOR: Normal bulk and tone. Moves arms and legs antigravity spontaneously but not to command. REFLEXES: 2+ at biceps, triceps, brachioradialis, trace patella and absent Achilles bilaterally. Flexor plantar responses in left toe, right toe upgoing. SENSORY: Grimaces to noxious stimuli in all extremities. COORDINATION: unable to assess 2/2 mental status GAIT: deferred given mental status Results & Data ([facility]) Vital Signs (Past 12 Hours) Vital Signs Temp Pulse Pulse Pulse Resp BP BP 06/06/20 15:33 36.3 C L 69 18 06/06/20 11:44 36.8 C 68 18 192/88 H 06/06/20 10:21 65 186/86 H 06/06/20 10:13 36.4 C L 74 16 06/06/20 09:18 78 18 193/103 H 06/06/20 09:00 74 12 180/104 H 06/06/20 08:31 78 18 168/98 H 06/06/20 07:30 70 12 184/90 H 06/06/20 06:43 71 18 06/06/20 05:49 36.4 C L 65 19 137/73 BP Pulse Ox 06/06/20 15:33 146/79 H 95 06/06/20 11:44 98/41 L 97 06/06/20 10:21 06/06/20 10:13 171/93 H 95 06/06/20 09:18 95 06/06/20 09:00 95 06/06/20 08:31 93 06/06/20 07:30 95 06/06/20 06:43 169/100 H 94 06/06/20 05:49 95 PG Care Time/CCT Total # of Minutes Spent Total Time Spent with Patient: Total time spent is greater than 50% in coordination of care (as documented) at patient's floor/unit and/or counseling patient: Coding Level of Care Code 70422 Initial Inpt Care Lvl 3 Diagnoses Confusion R41.0 UTI (urinary tract infection) N39.0 History of cerebellar stroke Z86.73 Cognitive impairment R41.89 NPH (normal pressure hydrocephalus) G91.2 Meningioma D32.9 S/P [employer] shunt Z98.2
[2020-06-06] MEDS: DOCUSATE SODIUM 100 MG CAP PO SCH ×3 (16:36→20:34)
[2020-06-06] MEDS: DULOXETINE HCL 60 MG CAP PO SCH (16:36)
[2020-06-06] MEDS: SITAGLIPTIN PHOSPHATE 100 MG TAB PO SCH (16:37)
[2020-06-06] MEDS: ATORVASTATIN 40 MG TAB PO SCH (16:37)
[2020-06-06] MEDS: lisinopriL 40 MG TAB PO SCH (16:37)
[2020-06-06] MEDS: ASPIRIN 81 MG ECTAB PO SCH (16:37)
[2020-06-06] MEDS: FINASTERIDE 5 MG TAB PO SCH (16:37)
[2020-06-06] MEDS: cloNIDine HCL 0.1 MG TAB PO SCH ×2 (16:37→20:15)
[2020-06-06] MEDS: METOPROLOL SUCC 50MG EXT REL TAB PO SCH (16:37)
[2020-06-07 06:18] LABS: Basophils # (auto) 0.02 K/uL (0-0.2); Basophils % (auto) 0.2 %; Eosinophils # (auto) 0.18 K/uL (0-0.5); Hematocrit (blood only) 39.3 % (42-52); Hemoglobin 13.5 g/dL (14.0-18.0); Immature Granulocytes # (auto) 0.03 K/uL (0.00-0.02); Immature Granulocytes % (auto) 0.3 %; Lymphocytes # (auto) 3.17 K/uL (1.2-3.4); Lymphocytes % (auto) 35.9 %; Mean Corpuscular Hemoglobin 31.8 pg (25-34); Mean Corpuscular Hgb Conc 34.4 g/dL (32-36); Mean Corpuscular Volume 92.5 fL (80-100); Mean Platelet Volume 10.1 fL (7.4-10.4); Monocytes % (auto) 6.8 %; Neutrophils # (auto) 4.84 K/uL (1.4-6.5); Neutrophils % (auto) 54.8 %; Platelet Count 213 K/uL (130-400); RDW Coefficient of Variation 12.6 % (11.5-14.5); RDW Standard Deviation 42.6 fL (36.4-46.3); Red Blood Count 4.25 M/uL (4.7-6.1); White Blood Count 8.84 K/uL (4.8-10.8)
[2020-06-07 06:46] LABS: Estimated Average Glucose 194 mg/dl; Hemoglobin A1C 8.4 % (4.5-5.6)
[2020-06-07 07:48] LABS: BUN Creatinine Ratio 16.6 (10-20); Calcium 8.4 mg/dl (8.5-10.1); Creatinine Clr Calc Pharmacy 76.5 ml/min; Est GFR (African American) 99.7; Potassium 3.7 mmol/L (3.5-5.1)
[2020-06-07] MEDS: DULOXETINE HCL 60 MG CAP PO SCH (08:01)
[2020-06-07] MEDS: lisinopriL 40 MG TAB PO SCH (08:01)
[2020-06-07] MEDS: METOPROLOL SUCC 50MG EXT REL TAB PO SCH (08:02)
[2020-06-07] MEDS: ATORVASTATIN 40 MG TAB PO SCH (08:02)
[2020-06-07] MEDS: DOCUSATE SODIUM 100 MG CAP PO SCH ×2 (08:02→20:58)
[2020-06-07] MEDS: SITAGLIPTIN PHOSPHATE 100 MG TAB PO SCH (08:02)
[2020-06-07] MEDS: cloNIDine HCL 0.1 MG TAB PO SCH ×2 (08:02→20:58)
[2020-06-07] MEDS: ASPIRIN 81 MG ECTAB PO SCH (08:03)
[2020-06-07] MEDS: cefTRIAXone SODIUM 1,000 MG in DEXTROSE 5% 50 ML IV SCH (08:04)
[2020-06-07] MEDS: INSULIN ASPART 100 UNITS/ML 3 ML PEN SC SCH ×4 (08:31→21:01)
[2020-06-07] MEDS: FINASTERIDE 5 MG TAB PO SCH (08:33)
[2020-06-07] MEDS: PANTOprazole 40 MG TAB PO SCH (08:37)
[2020-06-07 11:50] LABS: Folate (Folic Acid) 20.24 ng/ml (>5.38)
--- NOTE | 2020-06-07 14:54 | Hospitalist Progress Note ---
Date of Service June 07, 2020 Assessment & Plan (1) Confusion: With similar episodes 3-4 times over the last year as per my d/w daughter on phone, lasting a couple hours and cannot walk or even sit up when these occur Was combative and confused upon arrival With mentioned brain lesion on recent brain MRI at [facility] shunt in place on CT head, MRI brain with meningioma, old punctate cerebellar CVA, some motion compromise EEG without seizure activity which does not r/o seizure, but seems not likely. Afebrile With UTI in setting of MCI likely explanation Was given Haldol and ativan in ER and was obtunded for 12 hours or so. Now perfectly awake, alert, oriented x 3 -consult Neuro appreciated-recommends repeat brain MRI with contrast at some point in future as one here motion compromised, however he just had brain MRI 2 weeks ago at [facility] and has upcoming appt with Neurosurgery in 1- 2 weeks -no arrhythmias on tele labs otherwise normal, no metabolic disturbances -ok to advance diet to regular, dc IVFs -continue treating UTI (2) Metabolic encephalopathy: as above, presented with metabolic encephalopathy due to UTI Now resolved (3) Brain lesion: noted to have "tiny" lesion in brain as possible met vs neoplasm on outside MRI report None seen here but had motion artifact -f/u with NS in 1-2 weeks as scheduled based on outside MRI brain results Does however have a small meningioma here 1.2cm which is not causing issues (4) UTI (urinary tract infection): UA abnormal Ur cx with GNR -continue IV Rocephin (5) History of cerebellar stroke: as per reports from [facility]SH with left cerebellar CVA and falls on 05/26 No outside images for review MRI brain here with punctate left cerebellar infarct chronic as per Neuro read, consistent with outside reports from recent admission for CVA -continue ASA, statin PT/OT evals ordered Neuro consult appreciated (6) Diabetes mellitus: uncontrolled as per records from rehab with A1C 9.2% recently, now here with A1C 8.4% -accuchekcs, SSI-add carb coverage now that he is eating -cont Januvia hold home metformin (7) NPH (normal pressure hydrocephalus): s/p [employer] shunt in [address] Stiles NS in [place] no signs or symptoms of shunt malfunction or infection (8) Cognitive impairment: mild as per daughter Neuro recommended checking B12, B1, folate--> recommends treating with B12 supplementation for B12<450 B12 level here 443 -start B12 1000mcg IM daily x 2 days, then take B12 500mcg po daily folate normal B1 level pending (9) GERD (gastroesophageal reflux disease): continue PPI (10) HTN (hypertension), benign: BPs elevated on arrival as did not take meds due to AMS -now awake and taking po -restart home clonidine, metoprolol, lisinopril (11) Lumbar spinal stenosis: noted, h/o decomp and fusion (12) History of DVT (deep vein thrombosis): written in chart but daughter not aware of this diagnosis -start Lovenox SQ if no tumor on brain MRI (13) Hyperlipidemia: cont statin (14) DVT prophylaxis: Lovenox SQ added SCDs Dispo-continued stay PCU, PT/OT evals needed, hopeful for dc back to [facility] tomorrow if Ur cx resulted Daughter thinks her dad told her he wanted to be a DNR however [facility] chart says FULL CODE--> will keep FULL CODE for now but reassess with pt once he is more awake and alert Admission and Anticipated Discharge Date Admission Date: June 06, 2020 Subjective Pt feeling well today, has no complaints. He has no recollection of yesterday's events, but tells me today he woke up last night and realized he was in the hospital. He says that he has a long h/o urinary issues and is not surprised he has a UTI. Deneis headache or lightheadedness, no CP or SOB, no nausea. Is melissa clears and is hungry for regular food. No abd pain. Review of Systems Review of Systems: All systems reviewed & are unremarkable except as noted in HPI & below Physical Exam Constitutional: WD/WN, vitals as above Eyes: PERRL, conjunctivae normal, anicteric sclerae ENMT: external ear and nose normal, oropharynx normal Neck: trachea midline, no thyromegaly Respiratory: normal respiratory effort, lungs clear to auscultation Cardiovascular: RRR, no murmur, no edema Chest (Breasts): Chest: normal inspection of chest Gastrointestinal (Abdomen): normal bowel sounds, soft, nontender, no hepatosplenomegaly Musculoskeletal: Extremities: extremities normal to inspection; no cyanosis and no clubbing Skin: no rashes, warm and dry Neurologic: moves all extremities Psychiatric: A+Ox3, euthymic affect Lymphatic: no lymphedema Results & Data Results & Data ([facility]) Vital Signs (Past 12 Hours) Vital Signs Temp Pulse Pulse Resp BP Pulse Ox 06/07/20 11:49 36.5 C 64 18 162/99 H 98 06/07/20 08:00 80 06/07/20 07:58 36.7 C 73 17 149/88 H 98 06/07/20 04:28 36.6 C 78 16 168/98 H 96 Laboratory Results 06/07/20 06/07/20 06/07/20 Range/Units 20:26 16:40 11:18 WBC (4.8-10.8) K/uL RBC (4.7-6.1) M/uL Hgb (14.0-18.0) g/dL Hct (42-52) % MCV (80-100) fL MCH (25-34) pg MCHC (32-36) g/dL RDW Std Deviation (36.4-46.3) fL RDW Coeff of Preethi (11.5-14.5) % Plt Count (130-400) K/uL MPV (7.4-10.4) fL Immature Gran % (Auto) % Neut % (Auto) % Lymph % (Auto) % [place] % (Auto) % Eos % (Auto) % Baso % (Auto) % Neut # (Auto) (1.4-6.5) K/uL Lymph # (Auto) (1.2-3.4) K/uL [place] # (Auto) (0.11-0.59) K/uL Eos # (Auto) (0-0.5) K/uL Baso # (Auto) (0-0.2) K/uL Immature Gran # (Auto) (0.00-0.02) K/uL Sodium (136-145) mmol/L Potassium (3.5-5.1) mmol/L Chloride (98-107) mmol/L Carbon Dioxide (21-32) mmol/L Anion Gap (3-11) BUN (7-18) mg/dl Creatinine (0.6-1.4) mg/dl Est Cr Clr Drug Dosing ml/min Est GFR ( Amer) Est GFR (Non-Af Amer) BUN/Creatinine Ratio (10-20) Glucose (70-99) mg/dl POC Glucose 153 H 149 H 126 H (70-99) mg/dl Estimat Average Glucose mg/dl Hemoglobin A1c (4.5-5.6) % Calcium (8.5-10.1) mg/dl Whole Bld Vitamin B1 Vitamin B12 (211-911) pg/ml Folate (>5.38) ng/ml 06/07/20 06/07/20 06/07/20 Range/Units 07:49 05:48 05:48 WBC (4.8-10.8) K/uL RBC (4.7-6.1) M/uL Hgb (14.0-18.0) g/dL Hct (42-52) % MCV (80-100) fL MCH (25-34) pg MCHC (32-36) g/dL RDW Std Deviation (36.4-46.3) fL RDW Coeff of Preethi (11.5-14.5) % Plt Count (130-400) K/uL MPV (7.4-10.4) fL Immature Gran % (Auto) % Neut % (Auto) % Lymph % (Auto) % [place] % (Auto) % Eos % (Auto) % Baso % (Auto) % Neut # (Auto) (1.4-6.5) K/uL Lymph # (Auto) (1.2-3.4) K/uL [place] # (Auto) (0.11-0.59) K/uL Eos # (Auto) (0-0.5) K/uL Baso # (Auto) (0-0.2) K/uL Immature Gran # (Auto) (0.00-0.02) K/uL Sodium (136-145) mmol/L Potassium (3.5-5.1) mmol/L Chloride (98-107) mmol/L Carbon Dioxide (21-32) mmol/L Anion Gap (3-11) BUN (7-18) mg/dl Creatinine (0.6-1.4) mg/dl Est Cr Clr Drug Dosing ml/min Est GFR ( Amer) Est GFR (Non-Af Amer) BUN/Creatinine Ratio (-20) Glucose (70-99) mg/dl POC Glucose 111 H (70-99) mg/dl Estimat Average Glucose mg/dl Hemoglobin A1c (4.5-5.6) % Calcium (8.5-10.1) mg/dl Whole Bld Vitamin B1 Pending Vitamin B12 443 (211-911) pg/ml Folate 20.24 (>5.38) ng/ml 06/07/20 06/07/20 06/07/20 Range/Units 05:48 05:48 05:48 WBC 8.84 (4.8-10.8) K/uL RBC 4.25 L (4.7-6.1) M/uL Hgb 13.5 L (14.0-18.0) g/dL Hct 39.3 L (42-52) % MCV 92.5 (80-100) fL MCH 31.8 (25-34) pg MCHC 34.4 (32-36) g/dL RDW Std Deviation 42.6 (36.4-46.3) fL RDW Coeff of Preethi 12.6 (11.5-14.5) % Plt Count 213 (130-400) K/uL MPV 10.1 (7.4-10.4) fL Immature Gran % (Auto) 0.3 % Neut % (Auto) 54.8 % Lymph % (Auto) 35.9 % [place] % (Auto) 6.8 % Eos % (Auto) 2.0 % Baso % (Auto) 0.2 % Neut # (Auto) 4.84 (1.4-6.5) K/uL Lymph # (Auto) 3.17 (1.2-3.4) K/uL [place] # (Auto) 0.60 H (0.11-0.59) K/uL Eos # (Auto) 0.18 (0-0.5) K/uL Baso # (Auto) 0.02 (0-0.2) K/uL Immature Gran # (Auto) 0.03 H (0.00-0.02) K/uL Sodium 142 (136-145) mmol/L Potassium 3.7 (3.5-5.1) mmol/L Chloride 111 H (98-107) mmol/L Carbon Dioxide 23 (21-32) mmol/L Anion Gap 8.0 (3-11) BUN 14 (7-18) mg/dl Creatinine 0.86 (0.6-1.4) mg/dl Est Cr Clr Drug Dosing 76.5 ml/min Est GFR ( Amer) 99.7 Est GFR (Non-Af Amer) 86.0 BUN/Creatinine Ratio 16.6 (10-20) Glucose 107 H (70-99) mg/dl POC Glucose (70-99) mg/dl Estimat Average Glucose 194 mg/dl Hemoglobin A1c 8.4 H (4.5-5.6) % Calcium 8.4 L (8.5-10.1) mg/dl Whole Bld Vitamin B1 Vitamin B12 (211-911) pg/ml Folate (>5.38) ng/ml PG Care Time/CCT Total # of Minutes Spent Total Time Spent with Patient: Total time spent is greater than 50% in coordination of care (as documented) at patient's floor/unit and/or counseling patient: Coding Level of Care Code 29558 Subseq Hosp Care Lvl 3 Diagnoses Confusion R41.0 Metabolic encephalopathy G93.41 Brain lesion G93.9 UTI (urinary tract infection) N39.0 Hematuria presence: without hematuria Urinary tract infection type: site unspecified History of cerebellar stroke Z86.73 Diabetes mellitus E11.9 NPH (normal pressure hydrocephalus) G91.2 Cognitive impairment R41.89 GERD (gastroesophageal reflux disease) K21.9 HTN (hypertension), benign I10 Lumbar spinal stenosis M48.061 History of DVT (deep vein thrombosis) Z86.718 Hyperlipidemia E78.5 DVT prophylaxis Z29.9 (1) UTI (urinary tract infection) Hematuria presence: without hematuria Urinary tract infection type: site unspecified Qualified Code(s): N39.0 - Urinary tract infection, site not specified
[2020-06-07] MEDS: NSS + 20MEQ KCL 20 MEQ/1,000 ML BAG IV SCH (14:57)
--- NOTE | 2020-06-07 15:51 | Neurology Progress Note ---
Date of Service June 07, 2020 Assessment & Plan (1) Confusion: Polo Farooq is a 74 yo man w/ PMH of HTN, HLD, DM, h/o NPH s/p VPS in 2019, cognitive impairment, h/o DVT on ASA, known suspected brain tumor on MRI performed for recent stroke, and recent left cerebellar infarct currently in rehab who p/t [facility] after acute onset of confusion, agitation and fall. # Acute onset confusion/agitation episode: cannot rule out seizure though he does not currently have any seizure tendency or seizures noted on EEG; denies any associated convulsive movements, oral automatisms, tongue biting or worsened loss of bowel/bladder during episodes (has baseline incontinence). reports that he was more confused than usual and had problems getting his words out. Most likely cause of symptoms is underlying MCI and current UTI. No signs of elevated pressure or clear transependymal flow on exam or imaging, respectively. - recommend repeating MRI brain with contrast when he is more alert and able to follow commands to hold still to help further look at lesion in brain (most likely a meningioma given location and appearance, can be done as an outpatient) - treat UTI as already doing - start B12 500mcg daily, thiamine level pending, replete as needed - no need to start an AED at this time - seizure precautions, ativan 1mg prn for seizure lasting longer than 5 minutes or more than 2 seizures without return to baseline - if he spikes a fever, would send off for blood culture - keep neurosurgery appointment as scheduled next week to f/u his VPS # Recent punctuate cerebellar stroke: - continue home aspirin 81mg daily and atorvastatin 40mg daily - SSI for DM while admitted since we plan on re-trying MRI brain with contrast (hold metformin) - continue home BP meds, goal should be normotension Thank you for this interesting consult. Plan of care discussed with primary team. Please call or text questions. (2) UTI (urinary tract infection): (3) History of cerebellar stroke: (4) Cognitive impairment: (5) NPH (normal pressure hydrocephalus): (6) Meningioma: (7) S/P [employer] shunt: Admission and Anticipated Discharge Date Admission Date: June 06, 2020 Subjective NAEs overnight. Doing much better today. Does not remember what happened to bring him to the hospital. Denies any headache, vision changes, fever, abdominal pain or dysuria. Has baseline difficulties with ambulating. Review of Systems Review of Systems: 10 point review of systems completed and negative except as in HPI. Results & Data ([facility]) Vital Signs (Past 12 Hours) Vital Signs Temp Pulse Pulse Resp BP Pulse Ox 06/07/20 11:49 36.5 C 64 18 162/99 H 98 06/07/20 08:00 80 06/07/20 07:58 36.7 C 73 17 149/88 H 98 06/07/20 04:28 36.6 C 78 16 168/98 H 96 Exam (Neuro) Physical Exam: General Exam: GEN: NAD, sitting in bed. HEENT: No conjunctival injection, no rhinorrhea. CV: RRR, no peripheral edema PULM: Nonlabored respirations on room air. Neuro Exam: MS: Awake and Alert. Oriented to person, place, and month/year but not date. Speech fluent and appropriate without dysarthria or paraphasic errors. Language intact including naming, comprehension, repetition. Cognition and memory mildly impaired. Attention intact. No neglect. CN: Visual escobar full. No extinction to double simultaneous stimuli. Unable to visualize fundi on fundoscopic exam. PERRLA OU. EOMI without nystagmus. Facial sensation intact to LT. Facial muscles full and symmetric. Hearing intact to conversation. Uvula midline with symmetric palatal elevation. Shoulder shrug normal. Tongue midline. MOTOR: Normal bulk and tone. No pronator drift. BUE strength 5/5 at deltoids, biceps, triceps, and hand grasp bilaterally. BLE strength 5/5 at iliopsoas, hamstrings, quadriceps, tibialis anterior, and gastrocnemius bilaterally. REFLEXES: 2+ at biceps, triceps, brachioradialis, trace patella and absent Achilles bilaterally. Flexor plantar responses bilaterally. SENSORY: Intact to LT without extinction to double simultaneous stimuli. Vibration intact throughout. COORDINATION: No dysmetria or ataxia on [id number] bilaterally. Normal Evelina bilaterally. GAIT: deferred given physical status/fall risk PG Care Time/CCT Total # of Minutes Spent Total Time Spent with Patient: Total time spent is greater than 50% in coordination of care (as documented) at patient's floor/unit and/or counseling patient: Coding Level of Care Code 08725 Subseq Hosp Care Lvl 3 Diagnoses Confusion R41.0 UTI (urinary tract infection) N39.0 Hematuria presence: without hematuria Urinary tract infection type: site unspecified History of cerebellar stroke Z86.73 Cognitive impairment R41.89 NPH (normal pressure hydrocephalus) G91.2 Meningioma D32.9 S/P [employer] shunt Z98.2 (1) UTI (urinary tract infection) Hematuria presence: without hematuria Urinary tract infection type: site unspecified Qualified Code(s): N39.0 - Urinary tract infection, site not specified
[2020-06-07] MEDS: CYANOCOBALAMIN 1000 MCG/ML VIAL IM SCH (17:19)
[2020-06-07] MEDS ORDERED: DOCUSATE SODIUM/SENNA 50/8.6MG TAB PO PRN (20:54)
[2020-06-07] MEDS ORDERED: cloNIDine HCL 0.1 MG TAB PO SCH (21:00)
[2020-06-07] MEDS ORDERED: ENOXAPARIN INJ 40 MG/0.4 ML SYR SQ SCH (21:00)
[2020-06-07] MEDS: ACETAMINOPHEN 500 MG TAB PO PRN (21:25)
[2020-06-08] MEDS: cloNIDine HCL 0.1 MG TAB PO SCH (05:05)
[2020-06-08] MEDS: DULOXETINE HCL 60 MG CAP PO SCH (08:14)
[2020-06-08] MEDS: ACETAMINOPHEN 500 MG TAB PO PRN (08:14)
[2020-06-08] MEDS: ASPIRIN 81 MG ECTAB PO SCH (08:14)
[2020-06-08] MEDS: METOPROLOL SUCC 50MG EXT REL TAB PO SCH (08:15)
[2020-06-08] MEDS: ATORVASTATIN 40 MG TAB PO SCH (08:15)
[2020-06-08] MEDS: FINASTERIDE 5 MG TAB PO SCH (08:16)
[2020-06-08] MEDS: PANTOprazole 40 MG TAB PO SCH (08:16)
[2020-06-08] MEDS: DOCUSATE SODIUM 100 MG CAP PO SCH (08:16)
[2020-06-08] MEDS: SITAGLIPTIN PHOSPHATE 100 MG TAB PO SCH (08:17)
[2020-06-08] MEDS: lisinopriL 40 MG TAB PO SCH (08:17)
[2020-06-08] MEDS: INSULIN ASPART 100 UNITS/ML 3 ML PEN SC SCH ×2 (08:18→12:03)
[2020-06-08] MEDS: cefTRIAXone SODIUM 1,000 MG in DEXTROSE 5% 50 ML IV SCH (08:18)
[2020-06-08] MEDS: CYANOCOBALAMIN 1000 MCG/ML VIAL IM SCH (08:18)
[2020-06-08] MEDS ORDERED: TAMSULOSIN HCL 0.4 MG CAP PO SCH (09:00)
--- NOTE | 2020-06-08 10:51 | Discharge Summary ---
Date of Service June 08, 2020 Admission HPI Per Admitting Provider Pt is a 74 yo male with a recent history of left cerebellar infarct, possible brain met/neoplasm, HTN, NPH s/p shunt placement in 2019, DMII, GERD, cognitive impairment, h/o DVT, lumbar spinal stenosis, as well as mention in notes about possible pituitary adenoma, who presents to the [place] ER from [facility] with confusion, combativeness, and fall. The pt was obtunded after receiving IV Ativan and Haldol when I saw him in ER and moaned but could not provide any history. History obtained from paperwork from [facility] and ER physician who also spoke with pt's daughter. he was at [facility] rehab after a hospitalization at [facility] on 05/26 for cerebellar stroke. He was found at that time to have a "tiny brain lesion metastatic vs neoplasm" on brain MRI also. He apparently became acutely confused at [facility] prompting being sent to the ER. Daughter reports a h/o similar episodes in the past that have not had a cause identified and he has not had a workup for strokes. In the ER, he was combative and received Haldol and Ativan. Was found to have a UTI and given Cipro and Rocephin. Vitals were stable and labs otherwise unremarkable. CT head showed right posterior parieto-occipital ventriculostomy catheter with tip terminating in body of left ventricle, but no acute findings. CXR negative He will be admitted for acute confusion, UTI, needs further Neurological evaluation. Principal Diagnosis Acute metabolic encephalopathy, UTI Discharge Exam Constitutional WD/WN, vitals as above Eyes + anicteric sclerae and EOM intact bilaterally Neck trachea midline, no thyromegaly Respiratory normal respiratory effort, lungs clear to auscultation Cardiovascular RRR, no murmur, no edema Chest (Breasts) Chest: normal inspection of chest Gastrointestinal (Abdomen) normal bowel sounds, soft, nontender, no hepatosplenomegaly Musculoskeletal Extremities: extremities normal to inspection; no cyanosis and no clubbing Skin no rashes, warm and dry Neurologic moves all extremities Psychiatric A+Ox3, euthymic affect Lymphatic no lymphedema Discharge Data Allergies Allergy/AdvReac Type Severity Reaction Status Date / Time No Known Allergies Allergy Unverified 06/06/20 05:59 Consultations 06/06/20 07:14 ED Decision to Admit Stat 06/06/20 08:45 Consult Neurology Routine 06/06/20 09:39 Consult Case Management - Discharge Planning Routine 06/08/20 07:51 Consult Case Management - Discharge Planning Routine Ordered Studies 06/06/20 05:41 CT head/brain wo con Stat 06/06/20 08:45 MR brain wo con Stat Chest x-ray Hospital Course (1) Confusion: With similar episodes 3-4 times over the last year as per my d/w daughter on phone, lasting a couple hours and cannot walk or even sit up when these occur Was combative and confused upon arrival With mentioned brain lesion on recent brain MRI at [facility] shunt in place on CT head, MRI brain with meningioma, old punctate cerebellar CVA, some motion compromise, no other brain lesions noted EEG without seizure activity which does not r/o seizure, but seems not likely. Remained afebrile With UTI in setting of MCI likely explanation Was given Haldol and ativan in ER and was obtunded for 12 hours or so. Now perfectly awake, alert, oriented x 3, much improved -consult Neuro appreciated-recommends repeat brain MRI with contrast at some point in future as one here motion compromised, however he just had brain MRI 2 weeks ago at [facility] and has upcoming appt with Neurosurgery in 1- 2 weeks -no arrhythmias on tele labs otherwise normal, no metabolic disturbances -He has been eating and drinking and doing well -continue treating UTI Stable for discharge back to rehab facility (2) Metabolic encephalopathy: as above, presented with metabolic encephalopathy due to UTI Now resolved (3) Brain lesion: noted to have "tiny" lesion in brain as possible met vs neoplasm on outside MRI report None seen here but had motion artifact -f/u with NS in 1-2 weeks as scheduled based on outside MRI brain results Does however have a small meningioma here 1.2cm which is not causing issues (4) UTI (urinary tract infection): UA abnormal Ur cx with Proteus, pansensitive Received IV Rocephin x2 days and will convert to Keflex 500 mg p.o. 3 times daily x12 more days And started Flomax in case of urinary retention of which he had been having issues previously (5) History of cerebellar stroke: as per reports from [facility] with left cerebellar CVA and falls on 05/26 No outside images for review MRI brain here with punctate left cerebellar infarct chronic as per Neuro read, consistent with outside reports from recent admission for CVA -continue ASA, statin PT/OT evals ordered Neuro consult appreciated (6) Diabetes mellitus: uncontrolled as per records from rehab with A1C 9.2% recently, now here with A1C 8.4% -accuchekcs, SSI-add carb coverage now that he is eating -cont Oskar hold home metformin here but can restart on discharge (7) NPH (normal pressure hydrocephalus): s/p [employer] shunt in [address] Go BURNETTE in [place] no signs or symptoms of shunt malfunction or infection (8) Cognitive impairment: mild as per daughter Neuro recommended checking B12, B1, folate--> recommends treating with B12 supplementation for B12<450 B12 level here 443 -start B12 1000mcg IM daily x 2 days, then take B12 500mcg po daily after that folate normal B1 level pending at the time of discharge (9) GERD (gastroesophageal reflux disease): continue PPI (10) HTN (hypertension), benign: BPs elevated on arrival as did not take meds due to AMS -now awake and taking po -Continue home clonidine, metoprolol, lisinopril (11) Lumbar spinal stenosis: noted, h/o decomp and fusion (12) History of DVT (deep vein thrombosis): written in chart but daughter not aware of this diagnosis Okay to continue Lovenox SQ as tumor on brain MRI (13) Hyperlipidemia: cont statin (14) BPH (benign prostatic hyperplasia): Continue finasteride Added on Flomax 0.4 mg daily Consider follow-up with urology as an outpatient given recurrent UTIs (15) DVT prophylaxis: Lovenox SQ SCDs Dispo-stable for discharge to [facility] for rehab Daughter thinks her dad told her he wanted to be a DNR however [facility] chart says FULL CODE--> will keep FULL CODE for now but reassess with pt once he is more awake and alert Total Time Total Time Spent Total Time Spent (In Minutes): 35 minutes Total Time Includes: Examination of the Patient, Discharge Planning, Medication Reconciliation and Communication With Other Providers (multimedia manager, daughter) Discharge Plan Discharge Items Patient Disposition: Transfer Inpatient Rehab Fac Reason For Visit: CONFUSION,FALLS,POSSIBLE SEIZURE Discharge Diagnosis: Acute metabolic encephalopathy, UTI Condition on Discharge: Good Activity: Resume your previous activity Non-emergency contact: Primary Care Provider and Surgeon Call non-emergency contact if: you have any medication questions and your symptoms worsen Follow-up/Referrals: [facility] [Primary Care Provider] - Diet: Carb Consistent or DM2 and Heart Healthy Addtl Attending Provider Instructions: Please finish out a course of Keflex for a total of 14 days for your urinary tract infection. Due to your history of enlarged prostate and difficulty with urinary tract infections in the past, tamsulosin was added on to help prevent urinary retention. Keep your follow-up appointment with neurosurgery in June as scheduled. Continue with PT/OT for your recent stroke and NPH. Your vitamin B12 level was low normal and the neurologist here recommended supplementation which was ordered. Pending Studies at Discharge: Yes (Vitamin B1 level) Stand-Alone Forms: My [facility] Skilled Items Patient informed of condition?: Yes DNR: No Discharge Level of Care: Acute rehab Communicable Disease: No Discharge Prognosis: Improving Lines: None Urinary Catheter: No Medications and DC Order Prescriptions: New tamsulosin 0.4 mg Capsule 0.4 mg PO QAM Qty: 30 RF: 0 cephalexin [Keflex] 500 mg capsule 500 mg PO TID 12 Days Qty: 36 RF: 0 cyanocobalamin (vitamin B-12) 500 mcg tablet 500 mcg PO DAILY Qty: 30 RF: 0 Continued atorvastatin 40 mg Tablet 40 mg PO DAILY RF: 0 aspirin [Aspirin Low Dose] 81 mg Tablet,Delayed Release (Dr/Ec) 81 mg PO DAILY RF: 0 Januvia 100 mg Tablet 100 mg PO DAILY RF: 0 finasteride 5 mg Tablet 5 mg PO DAILY RF: 0 duloxetine 60 mg Capsule,Delayed Release(Dr/Ec) 60 mg PO DAILY RF: 0 docusate sodium 100 mg Capsule 100 mg PO BID RF: 0 metformin 500 mg tablet extended release 24 hr 1,000 mg PO BID RF: 0 clonidine HCl 0.1 mg Tablet 0.1 mg PO BID RF: 0 polyethylene glycol 3350 [Miralax] 17 gram Powder In Packet 17 g PO DAILY PRN (Reason: Constipation) RF: 0 sennosides-docusate sodium [Senokot-S] 8.6-50 mg Tablet 1 tab-cap PO DAILY PRN (Reason: Constipation) RF: 0 metoprolol succinate [Toprol XL] 100 mg Tablet Extended Release 24 Hr 100 mg PO DAILY RF: 0 acetaminophen [Tylenol Extra Strength] 500 mg Tablet 1,000 mg PO Q8H PRN (Reason: Pain) RF: 0 magnesium hydroxide 400 mg/5 mL Suspension 30 ml PO DAILY PRN (Reason: Constipation) RF: 0 bisacodyl 10 mg Suppository 10 mg NV DAILY PRN (Reason: Constipation) RF: 0 pantoprazole [Protonix] 40 mg Tablet,Delayed Release (Dr/Ec) 40 mg PO DAILY RF: 0 lidocaine [Lidoderm] 5 % Adhesive Patch,Medicated 1 patch TOPICAL DAILY RF: 0 Fleet Enema 19-7 gram/118 mL Enema 118 ml NV DAILY PRN (Reason: Constipation) RF: 0 lisinopril 40 mg Tablet 40 mg PO DAILY RF: 0 enoxaparin 40 mg/0.4 mL Syringe 40 mg SUBCUT DAILY RF: 0 Discharge Orders: Discharge Order (Routine); Ordered 06/08/20 Ordered By: Corrie Nevarez/Other Patient Handouts: High Blood Sugar (Hyperglycemia), Hypoglycemia ( Low Blood Sugar), Managing Type 2 Diabetes, Diabetes: Meal Planning Admission Data Admit Date/Time: 06/06/20 08:45 Attending Provider: Corrie Guzman Admit Provider: Corrie Guzman [facility] Other Providers: Enriqueta Santos ; Corrie Guzman ; Bianca Chiang Coding Level of Care Code D/C Day Management >30 mins Diagnoses Confusion R41.0 Metabolic encephalopathy G93.41 Brain lesion G93.9 UTI (urinary tract infection) N39.0 Hematuria presence: without hematuria Urinary tract infection type: site unspecified History of cerebellar stroke Z86.73 Diabetes mellitus E11.9 NPH (normal pressure hydrocephalus) G91.2 Cognitive impairment R41.89 GERD (gastroesophageal reflux disease) K21.9 HTN (hypertension), benign I10 Lumbar spinal stenosis M48.061 History of DVT (deep vein thrombosis) Z86.718 Hyperlipidemia E78.5 BPH (benign prostatic hyperplasia) N40.0 DVT prophylaxis Z29.9
== END 2020-06-08 14:14 | DRG 689 ==
LOC: ED 05:28 → 2S 08:45